=== PATIENT | female | born 1950 | race Caucasian/White ===

== ENCOUNTER → 2020-04-11 11:02 | Outpatient (CLI) | payer MEDICARE, MEDICAID ==
[2020-04-11 11:19] LABS: BASOPHILS 0.2 % (0-2); EOSINOPHILS 3.4 % (0-7); HEMOGLOBIN 11.1 g/dL (12-16); IMMATURE GRANULOCYTES 0.6 % (0-5); LYMPHOCYTE ABS# 0.75 10x3/uL (1.18-3.74); LYMPHOCYTES 15.8 % (15-50); MCH 28.8 pg (26.0-34.0); MCHC 30.8 g/dL (31.0-37.0); MCV 93.5 fL (80.0-100.0); MEAN PLATELET VOLUME 9.6 fL (7.4-10.4); MONOCYTES 6.5 % (2-11); NEUTROPHIL ABS# 3.48 10x3/uL (1.56-6.13); NEUTROPHILS 73.5 % (40-80); PLATELET COUNT 184 10x3/uL (130-400); RBC 3.85 10x6/uL (4.00-5.40); RDW 14.3 % (11.5-14.5); WBC 4.7 10x3/uL (4.8-10.8)
== END | disposition home or self-care (01) ==
LOC: D.LABREF 11:02
PROVIDERS: ATTEND Family Medicine
DX: Z51.81 Encounter for therapeutic drug level monitoring (principal); Z79.899 Other long term (current) drug therapy

== ENCOUNTER → 2020-05-18 15:43 | Outpatient (CLI) | payer MEDICARE, MEDICAID ==
[2020-05-18 16:11] LABS: BASOPHILS 0.1 % (0-2); EOSINOPHILS 2.8 % (0-7); HEMOGLOBIN 11.8 g/dL (12-16); IMMATURE GRANULOCYTES 0.4 % (0-5); LYMPHOCYTE ABS# 0.81 10x3/uL (1.18-3.74); MCH 29.6 pg (26.0-34.0); MCHC 31.1 g/dL (31.0-37.0); MCV 95.5 fL (80.0-100.0); MEAN PLATELET VOLUME 10.5 fL (7.4-10.4); MONOCYTES 6.2 % (2-11); NEUTROPHIL ABS# 5.27 10x3/uL (1.56-6.13); NEUTROPHILS 78.5 % (40-80); PLATELET COUNT 202 10x3/uL (130-400); RBC 3.98 10x6/uL (4.00-5.40); RDW 14.7 % (11.5-14.5); WBC 6.7 10x3/uL (4.8-10.8)
== END | disposition home or self-care (01) ==
LOC: D.LABREF 15:43
PROVIDERS: ATTEND Family Medicine
DX: Z79.899 Other long term (current) drug therapy (principal)

== ENCOUNTER → 2020-07-07 16:58 | Outpatient (CLI) | payer MEDICARE ==
[2020-07-07 19:10] LABS: BASOPHILS 0.4 % (0-2); HEMOGLOBIN 12.1 g/dL (12-16); MCHC 32.7 g/dL (31.0-37.0); MCV 91.7 fL (80.0-100.0); MEAN PLATELET VOLUME 8.7 fL (7.4-10.4); MONOCYTES 8.3 % (2-11); NEUTROPHILS 71.3 % (40-80); PLATELET COUNT 219 10x3/uL (130-400); RBC 4.04 10x6/uL (4.00-5.40); RDW 14.9 % (11.5-14.5); WBC 6.9 10x3/uL (4.8-10.8)
== END | disposition home or self-care (01) ==
LOC: D.LABREF 16:58
PROVIDERS: ATTEND Family Medicine
DX: Z79.899 Other long term (current) drug therapy (principal)

== ENCOUNTER → 2020-07-12 23:26 | Outpatient (CLI) | payer MEDICARE ==
[2020-07-13 00:15] LABS: BASOPHILS 0.7 % (0-2); EOSINOPHILS 3.4 % (0-7); HEMATOCRIT 35.8 % (36.0-48.0); HEMOGLOBIN 11.5 g/dL (12-16); LYMPHOCYTES 14.5 % (15-50); MCH 29.8 pg (26.0-34.0); MCHC 32.3 g/dL (31.0-37.0); MCV 92.3 fL (80.0-100.0); MEAN PLATELET VOLUME 9.1 fL (7.4-10.4); MONOCYTES 6.4 % (2-11); PLATELET COUNT 197 10x3/uL (130-400); RBC 3.88 10x6/uL (4.00-5.40); RDW 14.9 % (11.5-14.5); WBC 6.6 10x3/uL (4.8-10.8)
== END | disposition home or self-care (01) ==
LOC: D.LABREF 23:26
PROVIDERS: ATTEND Family Medicine
DX: Z51.81 Encounter for therapeutic drug level monitoring (principal)

== ENCOUNTER → 2020-07-20 20:59 | Outpatient (CLI) | payer MEDICARE ==
[2020-07-20 21:15] LABS: BASOPHILS 0.9 % (0-2); HEMATOCRIT 36.2 % (36.0-48.0); HEMOGLOBIN 11.8 g/dL (12-16); LYMPHOCYTES 14.9 % (15-50); MCH 29.6 pg (26.0-34.0); MCHC 32.5 g/dL (31.0-37.0); MCV 91.2 fL (80.0-100.0); MEAN PLATELET VOLUME 8.7 fL (7.4-10.4); MONOCYTES 5.7 % (2-11); NEUTROPHILS 76.5 % (40-80); PLATELET COUNT 227 10x3/uL (130-400); RBC 3.97 10x6/uL (4.00-5.40); RDW 14.8 % (11.5-14.5)
== END | disposition home or self-care (01) ==
LOC: D.LABREF 20:59
PROVIDERS: ATTEND Family Medicine
DX: E11.9 Type 2 diabetes mellitus without complications (principal)

== ENCOUNTER → 2020-07-25 23:02 | Outpatient (CLI) | payer MEDICARE ==
[2020-07-25 23:58] LABS: BASOPHILS 0.5 % (0-2); EOSINOPHILS 4.4 % (0-7); HEMATOCRIT 37.4 % (36.0-48.0); MCH 29.9 pg (26.0-34.0); MCV 93.3 fL (80.0-100.0); MEAN PLATELET VOLUME 8.6 fL (7.4-10.4); MONOCYTES 5.7 % (2-11); NEUTROPHILS 73.4 % (40-80); PLATELET COUNT 209 10x3/uL (130-400); RDW 14.6 % (11.5-14.5); WBC 6.5 10x3/uL (4.8-10.8)
== END | disposition home or self-care (01) ==
LOC: D.LABREF 23:02
PROVIDERS: ATTEND Family Medicine
DX: F20.9 Schizophrenia, unspecified (principal)

== ENCOUNTER → 2020-08-11 22:17 | Outpatient (CLI) | payer MEDICARE ==
[2020-08-12 00:05] LABS: BASOPHILS 0.3 % (0-2); EOSINOPHILS 3.3 % (0-7); HEMOGLOBIN 11.9 g/dL (12-16); LYMPHOCYTES 16.8 % (15-50); MCH 29.7 pg (26.0-34.0); MCHC 32.3 g/dL (31.0-37.0); MCV 91.9 fL (80.0-100.0); MEAN PLATELET VOLUME 8.8 fL (7.4-10.4); MONOCYTES 6.2 % (2-11); NEUTROPHILS 73.4 % (40-80); PLATELET COUNT 204 10x3/uL (130-400); RBC 4.02 10x6/uL (4.00-5.40); RDW 14.9 % (11.5-14.5); WBC 7.5 10x3/uL (4.8-10.8)
== END | disposition home or self-care (01) ==
LOC: D.LABREF 22:17
PROVIDERS: ATTEND Family Medicine
DX: Z79.899 Other long term (current) drug therapy (principal)